=== PATIENT | female | born 1945 | race Caucasian/White ===

== ENCOUNTER 2018-11-14 14:34 | Inpatient (IN) ==
[2018-11-14] MEDS ORDERED: 0.9 % Sodium Chloride 500 ML IVC ONE (14:44)
[2018-11-14] MEDS ORDERED: Aspirin 81 MG TAB.CHEW PO ONE (14:44)
--- NOTE | 2018-11-14 15:24 | Emergency Department Note ---
Disposition Clinical Impression: Thrombocytopenia, Hyponatremia, Weakness Cirrhosis Qualifiers: Hepatic cirrhosis type: alcoholic cirrhosis Ascites presence: with ascites Qualified Code(s): K70.31 - Alcoholic cirrhosis of liver with ascites Disposition: Admitted As Inpatient Condition: Fair Referrals: NONE,PCP [Primary Care Provider] - Forms: ED Satisfaction Letter, Work/School Release Time of Disposition: 17:42 General Adult HPI - General Chief complaint: ED General Medical Stated complaint: Low blood pressure Time Seen by Provider: 11/14/18 14:40 Source: EMS - History of Present Illness Pain Scale: 0 - Related Data Home Medications Medication Instructions Recorded Confirmed Bisoprolol/HCTZ 5/6.25 [Ziac 1 each PO DAILY 02/23/16 07/26/18 5/6.25] Albuterol Sulfate [Proair Hfa] 2 puff IH Q4H PRN 04/17/16 07/26/18 Aspirin 81 mg PO DAILY 04/17/16 07/26/18 Albuterol Neb [Proventil Neb] 2.5 mg IH QID PRN 07/26/18 07/26/18 Naproxen Sodium [Aleve] 220 mg PO DAILY PRN 07/26/18 07/26/18 Previous Rx's Medication Instructions Recorded Oxygen 2 l .ROUTE CONT #1 each 07/28/18 Allergies Allergy/AdvReac Type Severity Reaction Status Date / Time sulfamethoxazole AdvReac See Verified 09/18/16 09:39 [From Bactrim] Comments trimethoprim [From Bactrim] AdvReac See Verified 09/18/16 09:39 Comments Past Medical History - Past Medical History Medical history: Reports: GERD, hypertension Surgical history: Reports: knee replacement, other Psychiatric history: Reports: no psych history - Social History Smoking Status: Current every day smoker Smokeless Tobacco Status: No Alcohol use: Reports: heavy Drug use: Reports: none Physical Exam - General General appearance: alert, in no apparent distress Course Vital Signs Temperature 97.6 F 11/14/18 14:40 Pulse Rate 76 11/14/18 14:40 Respiratory Rate 15 11/14/18 14:40 Blood Pressure 103/60 11/14/18 14:40 O2 Sat by Pulse Oximetry 98 11/14/18 14:40 Temperature 97.6 F 11/14/18 14:40 Pulse Rate 74 11/14/18 16:23 Respiratory Rate 16 11/14/18 16:23 Blood Pressure 105/63 11/14/18 16:23 O2 Sat by Pulse Oximetry 96 11/14/18 16:23 Oxygen Delivery Oxygen Delivery Room Air Medical Decision Making - Lab Data Result diagrams: 11/14/18 15:08 11/14/18 15:08 Lab Results 11/14/18 11/14/18 11/14/18 Range/Units 15:08 15:08 15:08 WBC (4.3-11.1) K/mcL RBC (3.82-4.97) M/mcL Hgb (11.5-15.4) g/dL Hct (35.3-44.9) % MCV (83.0-100.0) fL MCH (28.0-33.3) pg MCHC (31.6-35.5) g/dL RDW (11.5-14.5) % Plt Count (140-400) K/mcL MPV (9.4-12.4) fL Immature Gran % (0-4) % Seg Neutrophils % % Lymphocytes % % Monocytes % % Eosinophils % % Basophils % % Neutrophils # (1.6-8.9) K/mcL Lymphocytes # (0.6-4.6) K/mcL Monocytes # (0.0-1.3) K/mcL Eosinophils # (0.0-0.6) K/mcL Basophils # (0.0-0.2) K/mcL PT 12.3 H (9.4-12.1) Seconds INR 1.1 APTT 32.1 (26.0-36.0) Seconds Sodium (136-145) mEq/L Potassium (3.5-5.1) mEq/L Chloride (98-107) mEq/L Carbon Dioxide (23-29) mEq/L BUN (8-23) mg/dL Creatinine (0.60-1.20) mg/dL Est GFR ( Amer) (> 60) Est GFR (Non-Af Amer) (> 60) BUN/Creatinine Ratio (6-26) Glucose (70-105) mg/dL Calculated Osmolality (280-300) Calcium (8.6-10.3) mg/dL Total Bilirubin 4.3 H (0.3-1.0) mg/dL Direct Bilirubin 2.7 H (0.0-0.2) mg/dL Indirect Bilirubin 1.6 H (0.0-1.2) mg/dL AST 172 H (13-39) Units/L ALT 62 H (7-52) Units/L Alkaline Phosphatase 197 H (34-104) Units/L Troponin I (< 0.04) ng/mL B-Natriuretic Peptide 27 (Less than 100) pg/mL Serum Total Protein 6.6 (6.4-8.9) g/dL Albumin 2.6 L (3.5-5.7) g/dL Globulin 4.0 H (2.4-3.5) g/dL Albumin/Globulin Ratio 0.7 L (1.1-2.2) 11/14/18 11/14/18 Range/Units 15:08 15:08 WBC 4.2 L (4.3-11.1) K/mcL RBC 3.06 L (3.82-4.97) M/mcL Hgb 10.1 L (11.5-15.4) g/dL Hct 30.8 L (35.3-44.9) % MCV 100.7 H (83.0-100.0) fL MCH 33.0 (28.0-33.3) pg MCHC 32.8 (31.6-35.5) g/dL RDW 14.0 (11.5-14.5) % Plt Count 100 L (140-400) K/mcL MPV 11.6 (9.4-12.4) fL Immature Gran % 0.7 (0-4) % Seg Neutrophils % 68.9 % Lymphocytes % 15.1 % Monocytes % 13.9 % Eosinophils % 0.7 % Basophils % 0.7 % Neutrophils # 2.9 (1.6-8.9) K/mcL Lymphocytes # 0.6 (0.6-4.6) K/mcL Monocytes # 0.6 (0.0-1.3) K/mcL Eosinophils # 0.0 (0.0-0.6) K/mcL Basophils # 0.0 (0.0-0.2) K/mcL PT (9.4-12.1) Seconds INR APTT (26.0-36.0) Seconds Sodium 129 L (136-145) mEq/L Potassium 4.1 (3.5-5.1) mEq/L Chloride 90 L (98-107) mEq/L Carbon Dioxide 25 (23-29) mEq/L BUN 14 (8-23) mg/dL Creatinine 0.84 (0.60-1.20) mg/dL Est GFR ( Amer) > 60 (> 60) Est GFR (Non-Af Amer) > 60 (> 60) BUN/Creatinine Ratio 17 (6-26) Glucose 110 H (70-105) mg/dL Calculated Osmolality 269 L (280-300) Calcium 8.5 L (8.6-10.3) mg/dL Total Bilirubin (0.3-1.0) mg/dL Direct Bilirubin (0.0-0.2) mg/dL Indirect Bilirubin (0.0-1.2) mg/dL AST (13-39) Units/L ALT (7-52) Units/L Alkaline Phosphatase (34-104) Units/L Troponin I < 0.03 (< 0.04) ng/mL B-Natriuretic Peptide (Less than 100) pg/mL Serum Total Protein (6.4-8.9) g/dL Albumin (3.5-5.7) g/dL Globulin (2.4-3.5) g/dL Albumin/Globulin Ratio (1.1-2.2) Attestation Statement - Attestation Attestation: I, Bo Francisco DO, examined this patient [id number] and my medical decision-making was reviewed with Jihan Cole DO, Resident Physician. I agree with the documented findings, disposition and treatment plan as described except to the extent set forth below. I personally supervised and was present for the huang/critical portions of the procedures completed by the resident documented below. Please see my progress notes for details. 73-year-old female presents emergency room with complaints of multiple falls as well as lightheadedness and dizziness. Patient said several medications changed over the last several days. She denies any specific chest pain or shortness of breath. She has not had any nausea vomiting or diarrhea. Denies any headache or vision change. The described dizziness is when she gets up and tries to walk around. She is concerned today because she was not feeling well called the squad. As the squad arrived her blood pressure was low in the 80s. They gave her to 50 mL of fluid in the patient's blood pressure was in 106 systolic. Patient does not have any other specific complaints or issues this time. There is a small abrasion the lateral aspect of the right eye. She has no other visible signs of trauma or injury to the head. Her pupils are equal round reactive. Extraocular muscles are intact. Oropharynx is patent mucous membranes are dry. Patient's vital signs reviewed and are stable here. Heart is regular. Lungs are clear. Abdomen is soft. No guarding no rigidity no peritoneal symptoms. Extremities otherwise unremarkable. No signs of ataxia. Sensation is intact. Slight pitting edema in the bilateral lower legs but othe rwise normal neurologic evaluation. Patient denies any vaginal discharge or bleeding at this time. Patient is concerning for medication-induced dizziness and near syncope and falls. Patient is also describing medication induced hypotension. She has been eating and drinking at her baseline. She does have a history of alcohol use taking several shots of liquor a day to go to bed. Patient also smokes. Patient is otherwise clinical stable this point with several medical issues that could be confounding the presentation. Detailed workup with CBC chemistry troponin and BNP urinalysis along with chest x-ray and fluid resuscitation will be started this time. Patient is otherwise clinically stable. See detailed documentation of the physical exam, medical intervention, medical decision-making disposition the resident physician's note. No critical care applied the patient's treatment course at this time. 1715 Patient is found to have a negative workup at this time outside of fluid ac cumulation the abdomen consistent with ascites. He should not will be admitted for symptomatic control management of potential hypotension along with volume depletion. Patient does have anemia that is new in comparison to previous this time. She denies any vaginal discharge or dark-colored stool. Stool sample will be collected as needed for bilirubin is elevated. She does typically of elevated bilirubins but this is worse than previous. Patient has CT imaging does not show any acute pathology in the right upper quadrant but because of liver failure and alcohol abuse the patient will be monitored closely. She does not show any acute signs of pancreatitis or abnormality concerning for a symptomatic jaundice. Patient is requiring further hospital care secondary to lab abnormalities as well as the hypotension. She was discussed with the hospitalist Dr. shaw. They will monitor the patient inpatient setting for continuation of lab evaluation possible right upper quadrant ultrasound and management of the liver related issues that are most likely driving the hypotension and symptoms at home. Patient is otherwise clinically stable here in emergency department. She will be monitored closely until the admission process is completed. EKG and labs are all reviewed by myself in conjunction with resident physician in documented in the charting.
--- NOTE | 2018-11-14 15:38 | Emergency Department Note ---
Disposition Clinical Impression: Thrombocytopenia, Hyponatremia Cirrhosis Qualifiers: Hepatic cirrhosis type: alcoholic cirrhosis Ascites presence: with ascites Qualified Code(s): K70.31 - Alcoholic cirrhosis of liver with ascites Disposition: Admitted As Inpatient Condition: Fair Referrals: NONE,PCP [Primary Care Provider] - Forms: ED Satisfaction Letter, Work/School Release Time of Disposition: 17:29 Dizziness HPI - General Chief Complaint: ED General Medical Stated Complaint: Low blood pressure Time Seen by Provider: 11/14/18 14:40 Source: patient, EMS Mode of arrival: EMS Limitations: no limitations Nursing Notes Reviewed: Yes Vital Signs Reviewed: Yes - History of Present Illness HPI Narrative: 73-year-old female with extensive history of congestive heart failure, COPD, was recently started on Flexeril an increase in her blood pressure medication of unknown name, arrives to the emergency department after frequent falls and dizziness upon standing. Patient's last fall was roughly 2 days ago where she struck her head. No LOC. Patient continues to experience a large amount of dizziness upon standing and shortness of breath. Patient states that she is unable to get around at home secondary to the amount of dizziness she is experiencing. She describes dizziness as a lightheaded sensation and only when she goes to stand up. Patient denies any associative chest pain, abdominal pain, nausea, vomiting, diarrhea. She denies any other complaints at this time. She was noted to have low blood pressure per EMS upon arrival with systolic blood pressure in 80s. Patient's repeat blood pressure upon my evaluation the room is the low 100s. - Related Data Home Medications Medication Instructions Recorded Confirmed Bisoprolol/HCTZ 5/6.25 [Ziac 1 each PO DAILY 02/23/16 07/26/18 5/6.25] Albuterol Sulfate [Proair Hfa] 2 puff IH Q4H PRN 04/17/16 07/26/18 Aspirin 81 mg PO DAILY 04/17/16 07/26/18 Albuterol Neb [Proventil Neb] 2.5 mg IH QID PRN 07/26/18 07/26/18 Naproxen Sodium [Aleve] 220 mg PO DAILY PRN 07/26/18 07/26/18 Previous Rx's Medication Instructions Recorded Oxygen 2 l .ROUTE CONT #1 each 07/28/18 Allergies Allergy/AdvReac Type Severity Reaction Status Date / Time sulfamethoxazole AdvReac See Verified 09/18/16 09:39 [From Bactrim] Comments trimethoprim [From Bactrim] AdvReac See Verified 09/18/16 09:39 Comments All systems ED: reviewed and negative except as stated. Constitutional: Reports: weakness. Denies: fever, chills ENT ED: Denies: dysphagia Cardiovascular: Reports: syncope. Denies: chest pain Respiratory: Reports: dyspnea (chronic) Gastrointestinal: Denies: abdominal pain, nausea, vomiting Genitourinary: Denies: urgency, dysuria Musculoskeletal: Denies: back pain, neck pain Integumentary: Denies: rash Neurological: Reports: weakness. Denies: headache, numbness, paresthesias, confusion Past Medical History - Past Medical History Attestation: Yes The following information was validated with the patient. Source: patient, old records reviewed Medical history: Reports: CHF, COPD, GERD, hypertension Surgical history: Reports: knee replacement, other Psychiatric history: Reports: no psych history - Social History Smoking Status: Current every day smoker Smokeless Tobacco Status: No Alcohol use: Reports: heavy Drug use: Reports: none Physical Exam - General Limitations: no limitations General appearance: alert, in no apparent distress - Head Head exam: normocephalic, normal inspection, other (Small superficial laceration to right brow line) - Eye Eye exam: Present: normal appearance, PERRL, EOMI - ENT ENT exam: normal exam, normal oropharynx, mucous membranes moist - Neck Neck exam: Present: normal inspection, full ROM, trachea midline - Chest Chest inspection: Present: normal inspection, symmetric chest wall rise - Respiratory Respiratory exam: Present: normal lung sounds bilaterally - Cardiovascular Cardiovascular exam: Present: regular rate, normal rhythm, normal heart sounds - Abdominal Exam Abdominal exam: Present: soft, Non-Tender. Absent: tenderness, distention, guarding, rebound, rigidity - Extremities Exam Extremities exam: Present: normal inspection, full ROM, normal capillary refill. Absent: tenderness, pedal edema - Neurological Exam Neurological exam: Present: alert, oriented X3, CN II-XII intact - Expanded Neurological Exam Patient oriented to: Present: person, place, time Speech: Present: fluid speech Cranial nerves: EOM function (II, III, IV, ): Normal, facial sensation (V): Normal, facial palsy (VII): Normal Motor strength - LUE: 4/5 Motor strength - RUE: 4/5 Motor strength - LLE: 4/5 Motor strength - RLE: 4/5 Sensory exam upper extremity: light touch: Normal Sensory exam lower extremity: light touch: Normal Coma Scale Eye Opening: Spontaneous Coma Scale Motor Response: Obeys Commands Coma Scale Verbal Response: Oriented Coma Scale Total: 15 - Skin Skin exam: Present: warm, dry, normal color Course Vital Signs Temperature 97.6 F 11/14/18 14:40 Pulse Rate 76 11/14/18 14:40 Respiratory Rate 15 11/14/18 14:40 Blood Pressure 103/60 11/14/18 14:40 O2 Sat by Pulse Oximetry 98 11/14/18 14:40 Temperature 97.6 F 11/14/18 14:40 Pulse Rate 74 11/14/18 16:23 Respiratory Rate 16 11/14/18 16:23 Blood Pressure 105/63 11/14/18 16:23 O2 Sat by Pulse Oximetry 96 11/14/18 16:23 Oxygen Delivery Oxygen Delivery Room Air Dizziness - MDM Narrative Medical decision making narrative: Patient's workup in the emergency department demonstrates sinus concerning for hyponatremia. The patient is a thrombocytopenia and what appears to be liver c irrhosis. The patient is a large amount of ascites in her abdomen and pelvis. Patient is a chronic alcoholic which likely explains the source of all of her symptoms. The patient has remained stable in the emergency department. We will admit the patient to the hospital at this time for further workup and care. Patient made aware and agrees to plan. Accepted by Dr. Farfan. - Lab Data Lab results reviewed: Yes I reviewed the patient's lab results. Result diagrams: 11/14/18 15:08 11/14/18 15:08 Lab Results 11/14/18 11/14/18 11/14/18 Range/Units 15:08 15:08 15:08 WBC (4.3-11.1) K/mcL RBC (3.82-4.97) M/mcL Hgb (11.5-15.4) g/dL Hct (35.3-44.9) % MCV (83.0-100.0) fL MCH (28.0-33.3) pg MCHC (31.6-35.5) g/dL RDW (11.5-14.5) % Plt Count (140-400) K/mcL MPV (9.4-12.4) fL Immature Gran % (0-4) % Seg Neutrophils % % Lymphocytes % % Monocytes % % Eosinophils % % Basophils % % Neutrophils # (1.6-8.9) K/mcL Lymphocytes # (0.6-4.6) K/mcL Monocytes # (0.0-1.3) K/mcL Eosinophils # (0.0-0.6) K/mcL Basophils # (0.0-0.2) K/mcL PT 12.3 H (9.4-12.1) Seconds INR 1.1 APTT 32.1 (26.0-36.0) Seconds Sodium (136-145) mEq/L Potassium (3.5-5.1) mEq/L Chloride (98-107) mEq/L Carbon Dioxide (23-29) mEq/L BUN (8-23) mg/dL Creatinine (0.60-1.20) mg/dL Est GFR ( Amer) (> 60) Est GFR (Non-Af Amer) (> 60) BUN/Creatinine Ratio (6-26) Glucose (70-105) mg/dL Calculated Osmolality (280-300) Calcium (8.6-10.3) mg/dL Total Bilirubin 4.3 H (0.3-1.0) mg/dL Direct Bilirubin 2.7 H (0.0-0.2) mg/dL Indirect Bilirubin 1.6 H (0.0-1.2) mg/dL AST 172 H (13-39) Units/L ALT 62 H (7-52) Units/L Alkaline Phosphatase 197 H (34-104) Units/L Troponin I (< 0.04) ng/mL B-Natriuretic Peptide 27 (Less than 100) pg/mL Serum Total Protein 6.6 (6.4-8.9) g/dL Albumin 2.6 L (3.5-5.7) g/dL Globulin 4.0 H (2.4-3.5) g/dL Albumin/Globulin Ratio 0.7 L (1.1-2.2) 11/14/18 11/14/18 Range/Units 15:08 15:08 WBC 4.2 L (4.3-11.1) K/mcL RBC 3.06 L (3.82-4.97) M/mcL Hgb 10.1 L (11.5-15.4) g/dL Hct 30.8 L (35.3-44.9) % MCV 100.7 H (83.0-100.0) fL MCH 33.0 (28.0-33.3) pg MCHC 32.8 (31.6-35.5) g/dL RDW 14.0 (11.5-14.5) % Plt Count 100 L (140-400) K/mcL MPV 11.6 (9.4-12.4) fL Immature Gran % 0.7 (0-4) % Seg Neutrophils % 68.9 % Lymphocytes % 15.1 % Monocytes % 13.9 % Eosinophils % 0.7 % Basophils % 0.7 % Neutrophils # 2.9 (1.6-8.9) K/mcL Lymphocytes # 0.6 (0.6-4.6) K/mcL Monocytes # 0.6 (0.0-1.3) K/mcL Eosinophils # 0.0 (0.0-0.6) K/mcL Basophils # 0.0 (0.0-0.2) K/mcL PT (9.4-12.1) Seconds INR APTT (26.0-36.0) Seconds Sodium 129 L (136-145) mEq/L Potassium 4.1 (3.5-5.1) mEq/L Chloride 90 L (98-107) mEq/L Carbon Dioxide 25 (23-29) mEq/L BUN 14 (8-23) mg/dL Creatinine 0.84 (0.60-1.20) mg/dL Est GFR ( Amer) > 60 (> 60) Est GFR (Non-Af Amer) > 60 (> 60) BUN/Creatinine Ratio 17 (6-26) Glucose 110 H (70-105) mg/dL Calculated Osmolality 269 L (280-300) Calcium 8.5 L (8.6-10.3) mg/dL Total Bilirubin (0.3-1.0) mg/dL Direct Bilirubin (0.0-0.2) mg/dL Indirect Bilirubin (0.0-1.2) mg/dL AST (13-39) Units/L ALT (7-52) Units/L Alkaline Phosphatase (34-104) Units/L Troponin I < 0.03 (< 0.04) ng/mL B-Natriuretic Peptide (Less than 100) pg/mL Serum Total Protein (6.4-8.9) g/dL Albumin (3.5-5.7) g/dL Globulin (2.4-3.5) g/dL Albumin/Globulin Ratio (1.1-2.2) - Radiology Data Radiology results reviewed: Yes I reviewed the patient's radiology results. Chest X-Ray 11/14/18 14:44 IMPRESSION: Bibasilar atelectasis. D/ / Chayito Gold MD / Chayito Gold MD Interpreting Provider: Chayito Gold MD Head CT 11/14/18 14:44 IMPRESSION: No acute intracranial abnormality. Chronic small vessel ischemic disease. D/ / 11/14/2018 16:30:31 Abigail Luna MD / Marlena lockhart Interpreting Provider: Abigail Luna MD Abdomen/Pelvis CT 11/14/18 16:07 IMPRESSION: Moderate-large amount of free fluid within the abdomen and pelvis. No bowel obstruction. Gallbladder sludge. No discrete gallstones. Hepatic cirrhosis with severe hepatic steatosis. Persistent right middle lobe nodular opacity. Recommend continued follow-up. Consider 6 months. D/ : / 11/14/2018 16:38:45 [facility] A Walton [facility] Interpreting Provider: Miguel A Walton MD - EKG Data EKG attestation: Yes I reviewed and interpreted this EKG. EKG results narrative: Heart rate 74 beats for minute. Normal sinus rhythm. No ST elevation or ST depression noted. No acute changes noted. Large amount of artifact. No other acute changes noted. Attestation Statement - Attestation Attestation: I, Bo Francisco DO, examined this patient [id number] and my medical decision-making was reviewed with Jihan Cole DO, Resident Physician. I agree with the documented findings, disposition and treatment plan as described except to the extent set forth below. I personally supervised and was present for the huang/critical portions of the procedures completed by the resident documented below. Please see my progress notes for details.
[2018-11-14 15:43] LABS: Basophils % 0.7 %; Eosinophils % 0.7 %; Hematocrit 30.8 % (35.3-44.9); Immature Granulocytes % 0.7 % (0-4); Lymphocytes # 0.6 K/mcL (0.6-4.6); Lymphocytes % 15.1 %; Mean Corpuscular HGB Conc 32.8 g/dL (31.6-35.5); Mean Corpuscular Volume 100.7 fL (83.0-100.0); Mean Platelet Volume 11.6 fL (9.4-12.4); Monocytes # 0.6 K/mcL (0.0-1.3); Monocytes % 13.9 %; Neutrophils # 2.9 K/mcL (1.6-8.9); Platelet Count 100 K/mcL (140-400); Red Blood Count 3.06 M/mcL (3.82-4.97); Segmented Neutrophils % 68.9 %
[2018-11-14 15:45] LABS: Hemoglobin 10.1 g/dL (11.5-15.4)
[2018-11-14 15:51] LABS: INR 1.1; Prothrombin Time 12.3 Seconds (9.4-12.1)
[2018-11-14 15:53] LABS: Activated Partial Thrombo Time 32.1 Seconds (26.0-36.0)
[2018-11-14 15:57] LABS: Albumin 2.6 g/dL (3.5-5.7); Albumin/Globulin Ratio 0.7 (1.1-2.2); Bilirubin,Direct 2.7 mg/dL (0.0-0.2); Bilirubin,Indirect 1.6 mg/dL (0.0-1.2); Bilirubin,Total 4.3 mg/dL (0.3-1.0); Total Protein 6.6 g/dL (6.4-8.9)
[2018-11-14] MEDS ORDERED: 0.9 % Sodium Chloride 1,000 ML ONE (16:47)
[2018-11-14 16:49] LABS: Troponin I < 0.03 ng/mL (< 0.04)
[2018-11-14 17:15] LABS: BUN/Creatinine Ratio 17 (6-26); Blood Urea Nitrogen 14 mg/dL (8-23); Calcium 8.5 mg/dL (8.6-10.3); Carbon Dioxide 25 mEq/L (23-29); Chloride 90 mEq/L (98-107); Glucose 110 mg/dL (70-105); Osmolality,Calculated 269 (280-300); Potassium 4.1 mEq/L (3.5-5.1); Sodium 129 mEq/L (136-145); eGFR For Non-African Americans > 60 (> 60)
[2018-11-14] MEDS ORDERED: Naloxone 0.4 MG/ML INJ IVP PRN (17:54)
--- NOTE | 2018-11-14 18:03 | Internal Med History&Physical ---
Date of Encounter: 11/14/18 Time of Encounter: 18:01 Internal Medicine - H&P: HPI Chief complaint: Frequent falls Admitted From: Emergency Dept Plans for Post Hospital Care: Home History of present illness: Ms. Fatimah Baron is a 73 year old female with history of liver cirrhosis, hypertension presents with hypotension and frequent falls. Patient states that over the last several days she has had episodes where she has fallen. She cannot describe the events that caused her fall but is adamant that she did not pass out or lose consciousness. She denies any dizziness. She does state that she feels like her blood pressure is low. She also feels like she has been bumping into things. She states her PCPs been changing on her medications but she cannot exactly describe what and how much she is taking. She states she has never had anything like this before. She states nothing makes her falling episodes better or worse. She reports chronic low back pain that is unchanged. She denies fever, chills, chest pain, shortness of breath. She feels like her abdomen is more swollen and full of fluid but denies abdominal pain, nausea, vomiting, diarrhea. Discussed with patient wishes to be full code. Past Med Surg Social Fam HX - Past Medical History Medical history: CHF, COPD, GERD, hypertension Additional medical history: declined smoking cessation. htn. nicotine abuse. battery end of life of spinal cord stimulator. post laminectomy syndrome Psychiatric history: no psych history - Past Surgical History Surgical History: knee replacement, other Additional surgical history: bladdder repair. amber knee replacement. gastric bypass. exlap,. back surgery - Social History Smoking Status: Current every day smoker Smokeless Tobacco Status: No Alcohol use: heavy (2-3 shots of whiskey nightly) Drug use: none - Family History Mother Living Status: Hx Family Cardiac Disorders: Yes Hx Family Respiratory Disorders: No Hx Family Cancer: Yes (brain tumor) Hx Family GI Disorders: No Hx Family Endocrine Disorder: Yes Hx Family Neuromuscular Disorders: No Hx Family Neurologic Disorders: No Hx Family HEENT Disorders: No Hx Family Autoimmune Disorders: No Father Living Status: Hx Family Cardiac Disorders: No Hx Family Respiratory Disorders: Yes Hx Family Cancer: No Hx Family GI Disorders: No Hx Family Endocrine Disorder: No Hx Family Neuromuscular Disorders: No Hx Family Neurologic Disorders: No Hx Family HEENT Disorders: No Hx Family Autoimmune Disorders: No Sister Living Status: Hx Family Cardiac Disorders: No Hx Family Respiratory Disorders: No Hx Family Cancer: Yes (brain tumor) Hx Family GI Disorders: No Hx Family Endocrine Disorder: Yes Hx Family Neuromuscular Disorders: No Hx Family Neurologic Disorders: No Hx Family HEENT Disorders: No Hx Family Autoimmune Disorders: No Brother Living Status: Still Living Hx Family Cardiac Disorders: Yes Hx Family Respiratory Disorders: Yes Hx Family Cancer: Yes Hx Family GI Disorders: No Hx Family Endocrine Disorder: Yes Hx Family Neuromuscular Disorders: No Hx Family Neurologic Disorders: No Hx Family HEENT Disorders: No Hx Family Autoimmune Disorders: No Son Hx Family Neuromuscular Disorders: No Hx Family Neurologic Disorders: Yes - Additional Family History Additional family history: Patient states every single one of her family members has fatty liver Internal Medicine - H&P: Meds Bisoprolol/HCTZ 5/6.25 [Ziac 5/6.25] 1 each PO DAILY 02/23/16 [History] Albuterol Sulfate [Proair Hfa] 2 puff IH Q4H PRN 04/17/16 [History] Aspirin 81 mg PO DAILY 04/17/16 [History] Albuterol Neb [Proventil Neb] 2.5 mg IH QID PRN 07/26/18 [History] Naproxen Sodium [Aleve] 220 mg PO DAILY PRN 07/26/18 [History] Oxygen 2 l .ROUTE CONT #1 each 07/28/18 [Rx] Allergy/AdvReac Type Severity Reaction Status Date / Time sulfamethoxazole AdvReac See Verified 09/18/16 09:39 [From Bactrim] Comments trimethoprim [From Bactrim] AdvReac See Verified 09/18/16 09:39 Comments All Systems PM: A 10-system review of systems was performed and is negative for pertinent findings except as documented above in the HPI. Review of systems: 10 point review of systems was obtained and negative other than stated: - Constitutional Constitutional: no chills, no fever(s) - Cardiovascular Cardiovascular ROS IM: no chest pain, no dyspnea - Gastrointestinal Gastrointestinal: no abdominal pain, no diarrhea, no nausea, no vomiting - Musculoskeletal Musculoskeletal ROS IM: back pain (chronic) - Constitutional Vitals: Temp Pulse Resp BP Pulse Ox 97.6 F 74 16 105/63 96 11/14/18 14:40 11/14/18 16:23 11/14/18 16:23 11/14/18 16:23 11/14/18 16:23 General appearance: Present: A&O X 3, pleasant, no acute distress Exam: . - Head Head exam: Present: normal inspection, normocephalic Additional comments: Old healing ecchymosis around right eye with abrasion above her right eye - Eye Eye exam: Present: EOMI, PERRL - ENT ENT exam: Present: mucous membranes moist - Neck Neck exam general surgery: Present: full ROM. Absent: tenderness, nuchal rigidity - Respiratory Respiratory exam: Present: CTAB. Absent: rales, rhonchi, wheezes - Cardiovascular Cardiovascular exam: Present: RRR. Absent: gallop, rubs, systolic murmur - GI/Abdominal GI/Abdominal exam: Present: distended, normal bowel sounds, soft. Absent: tenderness Additional comments: Positive shifting dullness and fluid wave. - Extremities Exam Extremities exam: Present: pedal edema (1+ lower extremity pitting edema.), warm. Absent: calf tenderness, tenderness - Neurological Exam Neurological exam: Present: alert, CN II-XII intact, oriented X3, no focal deficits, strengths equal and symetr throughout. Absent: facial droop, speech deficit - Psychiatric Psychiatric exam: Present: normal affect, normal mood - Skin Skin exam: Present: dry, warm Internal Med - H&P Results - Labs CBC & Chem 7: 11/14/18 15:08 11/14/18 15:08 Labs: Short CBC 11/14/18 Range/Units 15:08 WBC 4.2 L (4.3-11.1) K/mcL Hgb 10.1 L (11.5-15.4) g/dL Hct 30.8 L (35.3-44.9) % Plt Count 100 L (140-400) K/mcL Neutrophils # 2.9 (1.6-8.9) K/mcL BMP 11/14/18 15:08 Sodium 129 L Potassium 4.1 Chloride 90 L Carbon Dioxide 25 BUN 14 Creatinine 0.84 Glucose 110 H Calcium 8.5 L Cardiac Enzymes 11/14/18 Range/Units 15:08 Troponin I < 0.03 (< 0.04) ng/mL Liver Function 11/14/18 Range/Units 15:08 Total Bilirubin 4.3 H (0.3-1.0) mg/dL Direct Bilirubin 2.7 H (0.0-0.2) mg/dL AST 172 H (13-39) Units/L ALT 62 H (7-52) Units/L Alkaline Phosphatase 197 H (34-104) Units/L Albumin 2.6 L (3.5-5.7) g/dL - Impressions ITS Impressions Chest X-Ray 11/14/18 14:44 IMPRESSION: Bibasilar atelectasis. D/ / Chayito Gold MD / Chayito Gold MD Interpreting Provider: Chayito Gold MD Head CT 11/14/18 14:44 IMPRESSION: No acute intracranial abnormality. Chronic small vessel ischemic disease. D/ / 11/14/2018 16:30:31 Abigail Luna MD / Marlena Doss Interpreting Provider: Abigail Luna MD Abdomen/Pelvis CT 11/14/18 16:07 IMPRESSION: Moderate-large amount of free fluid within the abdomen and pelvis. No bowel obstruction. Gallbladder sludge. No discrete gallstones. Hepatic cirrhosis with severe hepatic steatosis. Persistent right middle lobe nodular opacity. Recommend continued follow-up. Consider 6 months. D/ /14/2018 16:38:45 Miguel A Walton MD / kevon Interpreting Provider: Miguel A Walton MD - Assessment and Plan (1) Hypotension Current Visit: Yes Status: Acute Assessment and plan: Patient presents with relative hypotension with falls that I feel like her rela candida to her hypertension. She is able to maintain her mean arterial pressure greater than 65 so there is no indication for vasopressors. Normal mentation with no evidence of end organ damage. Patient received 1 L of normal saline in the emergency department. Considering her ascites will hold off further crystalloid fluid and give albumin 25 g. Hold home blood pressure medications including diuretics at this time. Continue to closely monitor blood pressure. Telemetry reviewed, no indication for arrhythmia but continue cardiac telemetry. Qualifiers: Hypotension type: unspecified hypotension type Qualified Code(s): I95.9 - Hypotension, unspecified (2) Cirrhosis of liver with ascites Current Visit: No Status: Acute Assessment and plan: Patient has radiographic evidence of cirrhosis with abdominal ascites on CT scan which I personally reviewed. Cirrhosis likely secondary to chronic alcohol use. Reviewed previous gastroenterology notes and workup which revealed no other causes of liver cirrhosis including a negative viral hepatitis workup. Meld is 20, child Rodriguez class C indicative of advanced disease. Hold diuretics at this time due to hypotension as above. No encephalopathy so no indication for lactulose therapy currently. Albumin as above. Plan for paracentesis tomorrow. No abdominal pain, fever, leukocytosis so very low suspicion for SBP. Qualifiers: Hepatic cirrhosis type: alcoholic cirrhosis Qualified Code(s): K70.31 - Alcoholic cirrhosis of liver with ascites (3) Hyponatremia Current Visit: Yes Status: Acute Assessment and plan: Likely secondary to cirrhosis with volume overload. Mild at 129, asymptomatic. She received 1 L of fluids in the emergency department, we will avoid further normal saline. Recheck sodium in the morning. (4) Weakness Current Visit: Yes Status: Acute Assessment and plan: Patient reports weakness and frequent falls, possibly due to hypotension. Holding blood pressure medications and giving albumin as discussed above. We w ill consult PT/OT. (5) HTN (hypertension) Current Visit: No Status: Chronic Assessment and plan: Patient is hypotensive as discussed above. Hold pressure medications including diuretics at this time. Patient will likely need to discontinue blood pressure medications other than diuretics at discharge. Qualifiers: Hypertension type: essential hypertension Qualified Code(s): I10 - Essential (primary) hypertension (6) DVT prophylaxis Current Visit: No Status: Acute Assessment and plan: Heparin 500 subcutaneous twice a day - Time Spent With Patient Total time spent is greater than 50% in coordination of care (as documented) at patient's floor/unit and/or counseling patient:
[2018-11-14 18:30] LABS: Bilirubin,Urine Large (Negative); Blood,Urine Negative (Negative); Clarity,Urine Cloudy (Clear); Glucose,Urine (UA) Normal (Normal); Ketones,Urine 15 mg/dL (Negative); Leukocyte Esterase,Urine Small (Negative); Nitrite,Urine Positive (Negative); Protein,Urine Trace mg/dL (Neg-Trace); Urobilinogen,Urine >=8.0 mg/dL (Normal)
[2018-11-14 18:32] LABS: Bacteria,Urine None Seen per hpf (None-Few); RBC,Urine 50-100 per hpf (0-3); Squamous Epithelial Cell,Urine Many per lpf (None-Few)
[2018-11-14 18:47] LABS: Color,Urine Dark Yellow (Yellow)
[2018-11-14 19:02] LABS: Hyaline Casts,Urine Many per lpf (None-Few)
[2018-11-14] MEDS ORDERED: cefTRIAXone 1,000 MG in Water for inj. (sterile) 20 ML 10 ML IVP ONE (19:07)
[2018-11-14] MEDS ORDERED: Albuterol 2.5 MG/3 ML NEBULIZER IH PRN (23:34)
[2018-11-14] MEDS ORDERED: Ibuprofen 400 MG TABLET PO ONE (23:35)
[2018-11-15] MEDS: *HR* Heparin 5,000 UNIT/ML VIAL SQ SCH ×2 (05:28→19:00)
[2018-11-15] MEDS ORDERED: *HR* LORazepam 2 MG/ML VIAL IVP PRN ×3 (07:02)
[2018-11-15 08:36] LABS: Basophils % 0.7 %; Eosinophils # 0.1 K/mcL (0.0-0.6); Eosinophils % 2.9 %; Hemoglobin 10.1 g/dL (11.5-15.4); Immature Granulocytes % 0.5 % (0-4); Lymphocytes # 0.9 K/mcL (0.6-4.6); Lymphocytes % 20.3 %; Mean Corpuscular HGB Conc 33.7 g/dL (31.6-35.5); Mean Corpuscular Hemoglobin 33.4 pg (28.0-33.3); Mean Corpuscular Volume 99.3 fL (83.0-100.0); Mean Platelet Volume 11.7 fL (9.4-12.4); Monocytes # 0.6 K/mcL (0.0-1.3); Monocytes % 13.2 %; Neutrophils # 2.6 K/mcL (1.6-8.9); Platelet Count 103 K/mcL (140-400); Red Blood Count 3.02 M/mcL (3.82-4.97); Red Cell Distribution Width 14.1 % (11.5-14.5); Segmented Neutrophils % 62.4 %
[2018-11-15 08:45] LABS: INR 1.1; Prothrombin Time 12.7 Seconds (9.4-12.1)
[2018-11-15 08:47] LABS: Alanine Aminotransferase 54 Units/L (7-52); Albumin 2.8 g/dL (3.5-5.7); Albumin/Globulin Ratio 0.8 (1.1-2.2); Alkaline Phosphatase 188 Units/L (34-104); Aspartate Amino Transferase 148 Units/L (13-39); Bilirubin,Direct 3.2 mg/dL (0.0-0.2); Bilirubin,Indirect 1.8 mg/dL (0.0-1.2); Blood Urea Nitrogen 18 mg/dL (8-23); Calcium 8.7 mg/dL (8.6-10.3); Carbon Dioxide 31 mEq/L (23-29); Chloride 89 mEq/L (98-107); Globulin 3.6 g/dL (2.4-3.5); Glucose 84 mg/dL (70-105); Magnesium 1.6 mg/dL (1.6-2.6); Osmolality,Calculated 265 (280-300); Potassium 3.7 mEq/L (3.5-5.1); Sodium 127 mEq/L (136-145); Total Protein 6.4 g/dL (6.4-8.9)
[2018-11-15 09:24] LABS: BUN/Creatinine Ratio 19 (6-26); eGFR For Non-African Americans 59 (> 60)
--- NOTE | 2018-11-15 10:01 | Electrocardiograph Report ---
[place] [id number] Test Date: 2018-11-14 Pat Name: Jannette Baron Department: EXAM6 Room: [facility] Gender: F Powderman: : 1945 Requested By: Bo Francisco Order Number: [id number] Reading MD: Richi Dickerson Measurements Intervals [place] Rate: 74 P: 19 RI: 146 QRS: 13 QRSD: 104 T: 37 QT: 444 QTc: 493 Interpretive Statements Sinus rhythm Baseline artifact Electronically Signed On 11-15-2018 10:00:33 EDT by Richi Dickerson
--- NOTE | 2018-11-15 11:15 | Procedure Note ---
Date of procedure: 11/15/18 Pre-op diagnosis: Ascites Post-op diagnosis: same Procedure: Abdominal paracentesis: Written consent was obtained from patient. The abdomen was surveyed using ultrasound and on the right side there is noted to be large pocket of fluid. The patient was clinically drip in usual sterile fashion. 10 mL of 1% lidocaine was used to anesthetize the skin and soft tissues. A emmett in the skin was made and a paracentesis catheter was advanced into the peritoneal cavity. Straw- colored fluid was encountered however when attempting to advance the paracentesis catheter over the needle there is difficulty with advancing the catheter and the catheter became kinked. At this time I removed the catheter needle and obtained a second kit and reattempted the paracentesis at the same site. Again straw-colored ascitic fluid was obtained however there was difficu lty with advancing the catheter. At this point I the procedure and have consulted IR for abdominal paracentesis. The patient tolerated the procedure well, there are no immediate complications. Patient was reevaluated approximately one hour after the procedure she remained stable with no abdominal pain or adverse effects. Anesthesia: local (10cc 1% lidocaine) Surgeon: Sergio Young Was there an buyer assistant present: No Estimated blood loss (cc): 0 Specimen: none Pathology: none sent Condition: stable Disposition: floor
--- NOTE | 2018-11-15 11:18 | Internal Med Progress Note ---
Hospitalist Progress Note - Encounter Date of Encounter: 11/15/18 Time of Encounter: 11:16 - Subjective Interval History: Patient seen and examined at bedside. Patient states that she feels pretty good today. She states she has been up moving around the room without any weakness or falls. She denies any abdominal pain, nausea, vomiting. She does report decreased urine output. - Exam Vitals: Temp Pulse Resp BP Pulse Ox 97.9 F 94 16 107/66 97 11/15/18 08:00 11/15/18 08:00 11/15/18 08:00 11/15/18 08:00 11/15/18 08:00 Exam: Gen.: Oriented 3, no acute distress Heart: Regular rate and rhythm, no murmurs, rubs, gallops Lungs: Clear to auscultation bilaterally, no rales, rhonchi, wheezes Abdomen: Soft, nondistended, nontender. Normoactive bowel sounds. Ascites present. - Assessment and Plan (1) Hypotension Current Visit: Yes Status: Resolved Assessment and Plan: Resolved at this time after giving albumin last night. We will restart her diu retic regimen with Lasix 20 mg by mouth and prolactin 12.5 mg by mouth. (2) Cirrhosis of liver with ascites Current Visit: No Status: Acute Assessment and Plan: Patient remains of ascites present. Paracentesis attempted but unsuccessful, please see procedure note for details. Consult IR for paracentesis. (3) Hyponatremia Current Visit: Yes Status: Acute Assessment and Plan: Slightly worse today but stable. Asymptomatic. (4) Weakness Current Visit: Yes Status: Acute Assessment and Plan: Patient reports subjective improvement in her weakness. Awaiting PT/OT evaluation. (5) HTN (hypertension) Current Visit: No Status: Chronic Assessment and Plan: Blood pressure improved today. After her medications were updated it appears that she is only on diuretics at home. We will restart as above. (6) DVT prophylaxis Current Visit: No Status: Acute Assessment and Plan: Heparin 500 subcutaneous twice a day - Time Spent with Patient Total time spent is greater than 50% in coordination of care (as documented) at patient's floor/unit and/or counseling patient: Internal Medicine: Result - Labs CBC & Chem 7: 11/15/18 08:14 11/15/18 08:14 Labs: Short CBC 11/14/18 11/15/18 Range/Units 15:08 08:14 WBC 4.2 L 4.2 L (4.3-11.1) K/mcL Hgb 10.1 L 10.1 L (11.5-15.4) g/dL Hct 30.8 L 30.0 L (35.3-44.9) % Plt Count 100 L 103 L (140-400) K/mcL Neutrophils # 2.9 2.6 (1.6-8.9) K/mcL BMP 11/14/18 11/15/18 15:08 08:14 Sodium 129 L 127 L Potassium 4.1 3.7 Chloride 90 L 89 L Carbon Dioxide 25 31 H BUN 14 18 Creatinine 0.84 0.94 Glucose 110 H 84 Calcium 8.5 L 8.7 Cardiac Enzymes 11/14/18 Range/Units 15:08 Troponin I < 0.03 (< 0.04) ng/mL Liver Function 11/14/18 11/15/18 Range/Units 15:08 08:14 Total Bilirubin 4.3 H 5.0 H (0.3-1.0) mg/dL Direct Bilirubin 2.7 H 3.2 H (0.0-0.2) mg/dL AST 172 H 148 H (13-39) Units/L ALT 62 H 54 H (7-52) Units/L Alkaline Phosphatase 197 H 188 H (34-104) Units/L Albumin 2.6 L 2.8 L (3.5-5.7) g/dL Urine 11/14/18 Range/Units 18:19 Urine Color Dark Yellow (Yellow) Urine Clarity Cloudy A (Clear) Urine pH 5.0 (5.0-8.0) pH Units Ur Specific [place] 1.020 (1.010-1.025) Urine Protein Trace (Neg-Trace) mg/dL Urine Glucose (UA) Normal (Normal) mg/dL - ABG Interpretation ABG results: PT/INR, D-dimer PT 12.7 Seconds (9.4-12.1) H 11/15/18 08:14 - Impressions Impressions Chest X-Ray 11/14/18 14:44 IMPRESSION: Bibasilar atelectasis. D/ / Chayito Gold MD / Chayito Gold MD Interpreting Provider: Chayito Gold MD Head CT 11/14/18 14:44 IMPRESSION: No acute intracranial abnormality. Chronic small vessel ischemic disease. D/ / 11/14/2018 16:30:31 Abigail Luna MD / Marlena Doss Interpreting Provider: Abigail Luna MD Abdomen/Pelvis CT 11/14/18 16:07 IMPRESSION: Moderate-large amount of free fluid within the abdomen and pelvis. No bowel obstruction. Gallbladder sludge. No discrete gallstones. Hepatic cirrhosis with severe hepatic steatosis. Persistent right middle lobe nodular opacity. Recommend continued follow-up. Consider 6 months. D/ / 11/14/2018 16:38:45 Miguel A Walton MD / kevon Interpreting Provider: Miguel A Walton MD Consult Discharge Plan - Plan Referrals: Althea Love DO [Resident] - (1) Hypotension Qualifiers: Hypotension type: unspecified hypotension type Qualified Code(s): I95.9 - Hypotension, unspecified (2) Cirrhosis of liver with ascites Qualifiers: Hepatic cirrhosis type: alcoholic cirrhosis Qualified Code(s): K70.31 - Alcoholic cirrhosis of liver with ascites (5) HTN (hypertension) Qualifiers: Hypertension type: essential hypertension Qualified Code(s): I10 - Essential (primary) hypertension
[2018-11-15] MEDS: Furosemide 20 MG TABLET PO SCH (11:31)
[2018-11-15] MEDS: Spironolactone 25 MG TABLET PO SCH (11:31)
[2018-11-15 13:56] LABS: RBC,Peritoneal Fluid < 0.002 M/mcL
[2018-11-15 13:59] LABS: Amylase,Peritoneal Fluid < 10 Units/L (No Ref Range); Glucose,Peritoneal Fluid 93 mg/dL (No Ref Range); LDH,Peritoneal Fluid 74 Units/L (No Ref Range); Total Protein,Peritoneal Fluid < 3.0 g/dL
--- NOTE | 2018-11-15 15:02 | IR Procedure Note ---
Date of procedure: 11/15/18 Consent Obtained: Written consent Timeout: Correct patient and procedure verified, Correct site verified, Time out performed, Skin prep completed Local anesthetic: Lidocaine 1% Indications: Ascites Procedure Performed: Paracentesis Was there an minister assistant present: No Site/Technique: LLQ access. 8fr cath used. Results/Findings: Tolerated well. No immediate complications. Estimated blood loss (cc): 1 Complications: None; Tolerated procedure well Post Procedure Treatment Plan: Monitoring in pts room Specimen: to lab
[2018-11-15 15:32] LABS: Appearance of Peritoneal Fl CLEAR (Clear); Volume of Peritoneal Fluid 5.5 mL
[2018-11-16] MEDS ORDERED: Ibuprofen 400 MG TABLET PO ONE ×2 (00:21→21:44)
[2018-11-16 02:44] LABS: Basophils % 0.7 %; Eosinophils # 0.1 K/mcL (0.0-0.6); Eosinophils % 1.7 %; Hematocrit 31.8 % (35.3-44.9); Hemoglobin 10.8 g/dL (11.5-15.4); Immature Granulocytes % 0.7 % (0-4); Lymphocytes # 0.8 K/mcL (0.6-4.6); Lymphocytes % 19.4 %; Mean Corpuscular Hemoglobin 33.4 pg (28.0-33.3); Mean Corpuscular Volume 98.5 fL (83.0-100.0); Mean Platelet Volume 12.7 fL (9.4-12.4); Monocytes # 0.5 K/mcL (0.0-1.3); Monocytes % 13.3 %; Neutrophils # 2.6 K/mcL (1.6-8.9); Platelet Count 117 K/mcL (140-400); Red Blood Count 3.23 M/mcL (3.82-4.97); Segmented Neutrophils % 64.2 %
[2018-11-16 03:02] LABS: Alanine Aminotransferase 59 Units/L (7-52); Albumin 2.7 g/dL (3.5-5.7); Albumin/Globulin Ratio 0.7 (1.1-2.2); Alkaline Phosphatase 197 Units/L (34-104); Aspartate Amino Transferase 176 Units/L (13-39); BUN/Creatinine Ratio 22 (6-26); Bilirubin,Direct 3.1 mg/dL (0.0-0.2); Bilirubin,Indirect 1.6 mg/dL (0.0-1.2); Bilirubin,Total 4.7 mg/dL (0.3-1.0); Blood Urea Nitrogen 16 mg/dL (8-23); Calcium 8.4 mg/dL (8.6-10.3); Carbon Dioxide 30 mEq/L (23-29); Chloride 91 mEq/L (98-107); Glucose 111 mg/dL (70-105); Magnesium 1.4 mg/dL (1.6-2.6); Osmolality,Calculated 270 (280-300); Potassium 3.6 mEq/L (3.5-5.1); Sodium 129 mEq/L (136-145); Total Protein 6.7 g/dL (6.4-8.9); eGFR For Non-African Americans > 60 (> 60)
[2018-11-16] MEDS: *HR* Heparin 5,000 UNIT/ML VIAL SQ SCH ×2 (06:11→17:19)
[2018-11-16] MEDS: Spironolactone 25 MG TABLET PO SCH (07:47)
[2018-11-16] MEDS: Folic Acid 1 MG TABLET PO SCH (07:48)
[2018-11-16] MEDS: Furosemide 20 MG TABLET PO SCH (07:48)
--- NOTE | 2018-11-16 14:55 | Internal Med Progress Note ---
Hospitalist Progress Note - Encounter Date of Encounter: 11/16/18 Time of Encounter: 16:43 - Subjective Interval History: dizziness decreased occasional dyspnea no chest pain wearing O2 at home for 2 months - Exam Vitals: Temp Pulse Resp BP Pulse Ox 98.1 F 98 18 107/62 92 11/16/18 14:40 11/16/18 14:40 11/16/18 14:40 11/16/18 14:40 11/16/18 14:40 Exam: Gen.: Oriented 3, no acute distress mild icterus Heart: Regular rate and rhythm, no murmurs, rubs, gallops Lungs: Clear to auscultation bilaterally, no rales, rhonchi, wheezes Abdomen: Soft, nondistended, nontender. Normoactive bowel sounds. no nakle edema alert, oriented, no dysarthria or focal mtor deficits - Assessment and Plan (1) DVT prophylaxis Current Visit: No Status: Acute (2) Cirrhosis Current Visit: Yes Status: Chronic (3) Hyponatremia Current Visit: Yes Status: Acute (4) Hypotension Current Visit: Yes Status: Resolved - Summary of Assessment and Plan Summary of Assessment and Plan: Per H&P: """Ms. Fatimah Baron is a 73 year old female with history of liver cirrhosis, hypertension presents with hypotension and frequent falls. Patient states that over the last several days she has had episodes where she has fallen. She cannot describe the events that caused her fall but is adamant that she did not pass out or lose consciousness. She denies any dizziness. She does state that she feels like her blood pressure is low. She also feels like she h as been bumping into things. She states her PCPs been changing on her medications but she cannot exactly describe what and how much she is taking. She states she has never had anything like this before. She states nothing makes her falling episodes better or worse. She reports chronic low back pain that is unchanged. She denies fever, chills, chest pain, shortness of breath. She feels like her abdomen is more swollen and full of fluid but denies abdominal pain, nausea, vomiting, diarrhea. Discussed with patient wishes to be full code. """ (1) Cirrhosis of liver with ascites s/p paracentesis 11/15 with ?3L out (2) Hypotension, 60/40 at home, resolved with albumin - Cont diuretic regimen with Lasix 20 mg by mouth and spironolactone 12.5 mg by mouth. - On 11/16, she still has mild orthostatic dizziness with BP 115/72 --> 103/67 and HR 111--> 120 from lying to standing - will allow fluid equilibration and reassess tomorrow, avoid IV fluids (3) Hyponatremia Likely secondary to cirrhosis with volume overload. Mild at 129, asymptomatic. (4) Weakness (5) Mobility deficit Patient reports subjective improvement in her weakness after paracentesis - On 11/16, she walked int he hallway while holding banister throughout and was stumbling when tried to walk without support - PT/OTconsult as inpatient (5) History of systemic HTN (hypertension), currently low normal blood pressure (6) DVT prophylaxis Heparin 500 subcutaneous twice a day Lab draw holiday tomorrow - Time Spent with Patient Total time spent is greater than 50% in coordination of care (as documented) at patient's floor/unit and/or counseling patient: Internal Medicine: Result - Labs CBC & Chem 7: 11/16/18 01:14 11/16/18 01:14 Labs: Short CBC 11/16/18 Range/Units 01:14 WBC 4.1 L (4.3-11.1) K/mcL Hgb 10.8 L (11.5-15.4) g/dL Hct 31.8 L (35.3-44.9) % Plt Count 117 L (140-400) K/mcL Neutrophils # 2.6 (1.6-8.9) K/mcL BMP 11/16/18 01:14 Sodium 129 L Potassium 3.6 Chloride 91 L Carbon Dioxide 30 H BUN 16 Creatinine 0.74 Glucose 111 H Calcium 8.4 L Liver Function 11/16/18 Range/Units 01:14 Total Bilirubin 4.7 H (0.3-1.0) mg/dL Direct Bilirubin 3.1 H (0.0-0.2) mg/dL AST 176 H (13-39) Units/L ALT 59 H (7-52) Units/L Alkaline Phosphatase 197 H (34-104) Units/L Albumin 2.7 L (3.5-5.7) g/dL - ABG Interpretation ABG results: PT/INR, D-dimer PT 12.7 Seconds (9.4-12.1) H 11/15/18 08:14 - Impressions Impressions Paracentesis Ultrasound 11/15/18 09:45 IMPRESSION: Successful ultrasound guided paracentesis. D/ / Cecil Nolen MD / Cecil Nolen MD Interpreting Provider: Cecil Nolen MD Consult Discharge Plan - Plan Referrals: Althea Love DO [Resident] - (2) Cirrhosis Qualifiers: Hepatic cirrhosis type: alcoholic cirrhosis Ascites presence: with ascites Qualified Code(s): K70.31 - Alcoholic cirrhosis of liver with ascites (4) Hypotension Qualifiers: Hypotension type: unspecified hypotension type Qualified Code(s): I95.9 - Hypotension, unspecified
[2018-11-17] MEDS: *HR* Heparin 5,000 UNIT/ML VIAL SQ SCH ×2 (06:11→17:39)
[2018-11-17] MEDS: Spironolactone 25 MG TABLET PO SCH (08:33)
[2018-11-17] MEDS: Furosemide 20 MG TABLET PO SCH (08:34)
[2018-11-17] MEDS: Folic Acid 1 MG TABLET PO SCH (08:34)
--- NOTE | 2018-11-17 13:03 | Internal Med Progress Note ---
Hospitalist Progress Note - Encounter Date of Encounter: 11/17/18 Time of Encounter: 13:02 - Subjective Interval History: dizziness decreased till has some when walking occasional dyspnea no chest pain had some drainage from paracentesis site this morning wearing O2 at home for 2 months - Exam Vitals: Temp Pulse Resp BP Pulse Ox 98.4 F 91 15 103/70 96 11/17/18 06:55 11/17/18 06:55 11/17/18 06:55 11/17/18 06:55 11/17/18 06:55 Exam: Gen.: Oriented 3, no acute distress mild icterus Heart: Regular rate and rhythm, no murmurs, rubs, gallops Lungs: decreased breath sounds bilateral bases, no rales, rhonchi, wheezes Abdomen: Soft, nondistended, nontender. no guarding or rebound no ankle edema alert, oriented, no dysarthria or focal motor deficits - Assessment and Plan (1) DVT prophylaxis Current Visit: No Status: Acute (2) Cirrhosis Current Visit: Yes Status: Chronic (3) Hyponatremia Current Visit: Yes Status: Acute (4) Hypotension Current Visit: Yes Status: Resolved - Summary of Assessment and Plan Summary of Assessment and Plan: Per H&P: """Ms. Fatimah Baron is a 73 year old female with history of liver cirrhosis, hypertension presents with hypotension and frequent falls. Patient states that over the last several days she has had episodes where she has fallen. She cannot describe the events that caused her fall but is adamant that she did not pass out or lose consciousness. She denies any dizziness. She does state that she feels like her blood pressure is low. She also feels like she has been bumping into things. She states her PCPs been changing on her medications but she cannot exactly describe what and how much she is taking. She states she has never had anything like this before. She states nothing makes her falling episodes better or worse. She reports chronic low back pain that is unchanged. She denies fever, chills, chest pain, shortness of breath. She feels like her abdomen is more swollen and full of fluid but denies abdominal pain, nausea, vomiting, diarrhea. Discussed with patient wishes to be full code. """ (1) Cirrhosis of liver with ascites s/p paracentesis 11/15 with ?3L out (2) Hypotension, 60/40 at home, resolved with albumin - Cont diuretic regimen with Lasix 20 mg by mouth and spironolactone 12.5 mg by mouth. - she still has mild dizziness occasionally postural - will allow fluid equilibration, slowly improving (3) Hyponatremia Likely secondary to cirrhosis with volume overload. Mild at 129, asymptomatic. (4) Weakness (5) Mobility deficit Patient reports subjective improvement in her weakness after paracentesis - On 11/16, she walked in the hallway while holding banister throughout and was stumbling when tried to walk without support - PT/OT consult (6) History of systemic HTN (hypertension), currently low normal blood pressure (7) DVT prophylaxis Heparin 500 subcutaneous twice a day - Time Spent with Patient Total time spent is greater than 50% in coordination of care (as documented) at patient's floor/unit and/or counseling patient: Internal Medicine: Result - Labs CBC & Chem 7: 11/16/18 01:14 11/16/18 01:14 - ABG Interpretation ABG results: PT/INR, D-dimer PT 12.7 Seconds (9.4-12.1) H 11/15/18 08:14 Consult Discharge Plan - Plan Referrals: Althea Love DO [Resident] - (2) Cirrhosis Qualifiers: Hepatic cirrhosis type: alcoholic cirrhosis Ascites presence: with ascites Qualified Code(s): K70.31 - Alcoholic cirrhosis of liver with ascites (4) Hypotension Qualifiers: Hypotension type: unspecified hypotension type Qualified Code(s): I95.9 - Hypotension, unspecified
[2018-11-18 04:56] LABS: Hematocrit 34.4 % (35.3-44.9); Hemoglobin 11.5 g/dL (11.5-15.4); Mean Corpuscular HGB Conc 33.4 g/dL (31.6-35.5); Mean Corpuscular Hemoglobin 33.8 pg (28.0-33.3); Mean Corpuscular Volume 101.2 fL (83.0-100.0); Mean Platelet Volume 10.9 fL (9.4-12.4); Platelet Count 124 K/mcL (140-400); Red Cell Distribution Width 15.4 % (11.5-14.5)
[2018-11-18] MEDS: *HR* Heparin 5,000 UNIT/ML VIAL SQ SCH (05:04)
[2018-11-18 05:13] LABS: BUN/Creatinine Ratio 24 (6-26); Blood Urea Nitrogen 14 mg/dL (8-23); Calcium 8.4 mg/dL (8.6-10.3); Carbon Dioxide 31 mEq/L (23-29); Chloride 96 mEq/L (98-107); Glucose 97 mg/dL (70-105); Osmolality,Calculated 284 (280-300); Potassium 3.2 mEq/L (3.5-5.1); Sodium 137 mEq/L (136-145); eGFR For Non-African Americans > 60 (> 60)
[2018-11-18] MEDS: Folic Acid 1 MG TABLET PO SCH (08:23)
[2018-11-18] MEDS: Spironolactone 25 MG TABLET PO SCH (08:23)
[2018-11-18] MEDS: Furosemide 20 MG TABLET PO SCH (08:23)
--- NOTE | 2018-11-18 13:16 | Internal Med Progress Note ---
Hospitalist Progress Note - Encounter Date of Encounter: 11/18/18 Time of Encounter: 12:16 - Subjective Interval History: Patient complained of leaking fluid through pleurocentesis site. Review the lab in vitals Patient denies fever or chills nausea vomiting headache dizziness chest pain shortness of breath abdominal pain diarrhea - Exam Vitals: Temp Pulse Resp BP Pulse Ox 98.2 F 95 16 113/73 98 11/18/18 10:10 11/18/18 10:10 11/18/18 10:10 11/18/18 10:10 11/18/18 10:10 Exam: Gen.: Oriented 3, no acute distress PERRLA EOMI Heart: Regular rate and rhythm, no murmurs, rubs, gallops Lungs: decreased breath sounds bilateral bases, no rales, rhonchi, wheezes Abdomen: Soft, nondistended, nontender. no guarding or rebound. Ascites. Leaking fluid through the paracentesis site. 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 Paracentesis attempted but unsuccessful, please see procedure note for details. Patient is leaking fluid through paracentesis site therefore consulted interventional radiologist again we will reevaluate the patient for further plan Possible discharge tomorrow if cleared by IR (2) HTN (hypertension) Current Visit: No Status: Chronic Assessment and Plan: Blood pressure improved (3) Hyponatremia Current Visit: Yes Status: Acute Assessment and Plan: Improved (4) Weakness Current Visit: Yes Status: Acute Assessment and Plan: Patient reports subjective improvement in her weakness. PTOT on board (5) Hypotension Current Visit: Yes Status: Resolved Assessment and Plan: Resolved at this time after giving albumin. restarted her diuretic regimen with Lasix 20 mg by mouth and Aldactone 12.5 mg by mouth. (6) DVT prophylaxis Current Visit: No Status: Acute Assessment and Plan: Heparin 500 subcutaneous twice a day - Time Spent with Patient Total time spent is greater than 50% in coordination of care (as documented) at patient's floor/unit and/or counseling patient: Internal Medicine: Result - Labs CBC & Chem 7: 11/18/18 04:40 11/18/18 04:40 Labs: Short CBC 11/18/18 Range/Units 04:40 WBC 4.3 (4.3-11.1) K/mcL Hgb 11.5 (11.5-15.4) g/dL Hct 34.4 L (35.3-44.9) % Plt Count 124 L (140-400) K/mcL BMP 11/18/18 04:40 Sodium 137 Potassium 3.2 L Chloride 96 L Carbon Dioxide 31 H BUN 14 Creatinine 0.59 L Glucose 97 Calcium 8.4 L - ABG Interpretation ABG results: PT/INR, D-dimer PT 12.7 Seconds (9.4-12.1) H 11/15/18 08:14 Consult Discharge Plan - Plan Referrals: Althea Love DO [Resident] - (1) Cirrhosis of liver with ascites Qualifiers: Hepatic cirrhosis type: alcoholic cirrhosis Qualified Code(s): K70.31 - Alcoholic cirrhosis of liver with ascites (2) HTN (hypertension) Qualifiers: Hypertension type: essential hypertension Qualified Code(s): I10 - Essential (primary) hypertension (5) Hypotension Qualifiers: Hypotension type: unspecified hypotension type Qualified Code(s): I95.9 - Hypotension, unspecified
[2018-11-18 13:53] VITALS: BP 109/66
--- NOTE | 2018-11-18 17:03 | Discharge Summary ---
- NOTES TO OUTPATIENT PROVIDER Notes to Outpatient Provider: Follow-up with PCP-in 3-5 days. Get established with GI specialist with the help of PCP. Home health care for PT OT Orders not resulted at time of discharge: Pending orders 11/14/18 19:29 Culture,Blood [BC] Stat 11/19/18 04:00 BMP [Basic Metabolic Panel] AM 0400 Complete Blood Count [HEME] AM 0400 Date of Encounter: 11/18/18 Time of Encounter: 16:59 - Discharge Diagnosis (1) Cirrhosis of liver with ascites Priority: Primary Status: Acute Assessment and Plan: Status post paracentesis with failed attempt as per the operative note by IR. There was concern about leaking paracentesis site therefore reconsulted intervention radiologist and he evaluated the patient and did not find any concern and okay to discharge home. Chronic respiratory failure-due to unknown etiology. Home oxygen 2 L Qualifiers: Hepatic cirrhosis type: alcoholic cirrhosis Qualified Code(s): K70.31 - Alcoholic cirrhosis of liver with ascites (2) HTN (hypertension) Priority: Primary Status: Chronic Assessment and Plan: Blood pressure improved Qualifiers: Hypertension type: essential hypertension Qualified Code(s): I10 - Essential (primary) hypertension (3) Hyponatremia Priority: Primary Status: Acute Assessment and Plan: Improved (4) Weakness Priority: Primary Status: Acute Assessment and Plan: Patient reports subjective improvement in her weakness. PTOT on board in being discharged home health care with PTOT. Discuss with director of social media marketing (5) Hypotension Priority: Primary Status: Resolved Assessment and Plan: Resolved at this time after giving albumin. restarted her diuretic regimen with Lasix 20 mg by mouth and Aldactone 12.5 mg by mouth and so far tolerating well. Qualifiers: Hypotension type: unspecified hypotension type Qualified Code(s): I95.9 - Hypotension, unspecified Hospital course: Ms. Fatimah Baron is a 73 year old female got admitted for dizziness and found to be low blood pressure underlying etiology. Patient also had liver cirrhosis therefore paracentesis was attempted unsuccessfully. Blood pressure improve after albumin infuses in restarted her home diuretic medicine and tolerating well. Please see detail in diagnosis section of discharge summary. At the time of discharge patient is clinically hemodynamically stable, tolerating oral diet and ambulating. Patient thinks she is back to baseline without any further dizziness. As per patient supposed to see GI specialist but not able to recall the name. Discharge discussed with: patient, nurse, social work, case management - Time Spent with Patient Total time spent providing and/or coordinating discharge services: Time spent: Less than 30 minutes, Greater than 30 minutes - Discharge Medications Prescriptions: No Action Albuterol Neb [Proventil Neb] 2.5 mg IH QID PRN PRN Reason: Shortness Of Breath Naproxen Sodium [Aleve] 220 mg PO DAILY Aspirin [Adult Aspirin Regimen] 81 mg PO DAILY Cyclobenzaprine HCl 5 mg PO BID PRN PRN Reason: Muscle Spasm Folic Acid 1 mg PO DAILY Furosemide [Lasix] 20 mg PO DAILY Spironolactone 25 mg PO DAILY Albuterol Sulfate [Ventolin Hfa] 2 puff IH Q6H PRN PRN Reason: Shortness Of Breath Omeprazole [PriLOSEC] 40 mg PO DAILY Potassium Chloride [K-Tab ER] 20 meq PO DAILY Magnesium Oxide [Magnesium] 1,000 mg PO DAILY Home Medications: Albuterol Neb [Proventil Neb] 2.5 mg IH QID PRN 07/26/18 [History] Naproxen Sodium [Aleve] 220 mg PO DAILY 07/26/18 [History] Albuterol Sulfate [Ventolin Hfa] 2 puff IH Q6H PRN 11/14/18 [History] Aspirin [Adult Aspirin Regimen] 81 mg PO DAILY 11/14/18 [History] Cyclobenzaprine HCl 5 mg PO BID PRN 11/14/18 [History] Folic Acid 1 mg PO DAILY 11/14/18 [History] Furosemide [Lasix] 20 mg PO DAILY 11/14/18 [History] Magnesium Oxide [Magnesium] 1,000 mg PO DAILY 11/14/18 [History] Omeprazole [PriLOSEC] 40 mg PO DAILY 11/14/18 [History] Potassium Chloride [K-Tab ER] 20 meq PO DAILY 11/14/18 [History] Spironolactone 25 mg PO DAILY 11/14/18 [History] Allergies/Adverse Reactions: Allergy/AdvReac Type Severity Reaction Status Date / Time sulfamethoxazole AdvReac See Verified 11/14/18 18:45 [From Bactrim] Comments trimethoprim [From Bactrim] AdvReac See Verified 11/14/18 18:45 Comments Date of admission: 11/15/18 14:45 Primary care physician: PCP NONE Consults: 11/14/18 17:57 Consult to Supervisor Rod Placing [CONS] Routine Reason for SW Consult: Frequent falls, may need placement 11/15/18 09:44 Consult to Interventional Radiology [CONS] Routine Consulting Provider: Radiology Interventional Cols Reason for Consult: paracentesis Call Completed: No 11/16/18 16:54 Consult to Occupational Therapy [CONS] Routine Comment: Evaluate, develop and implement POC Reason for Consult: Frequent falls Does patient have active BEDREST order?: No Is patient medically & hemodynamically stable?: Yes Consult to Physical Therapy [CONS] Routine Comment: Evaluate, develop and implement POC Reason for Consult: Frequent falls Does patient have active BEDREST order?: No Is patient medically & hemodynamically stable?: Yes - Constitutional Vitals: Temp Pulse Resp BP Pulse Ox 98.0 F 88 17 109/66 99 11/18/18 13:52 11/18/18 13:52 11/18/18 13:52 11/18/18 13:52 11/18/18 13:52 General appearance: Present: A&O X 3, pleasant, no acute distress Exam: Gen.: Oriented 3, no acute distress PERRLA EOMI Heart: Regular rate and rhythm, no murmurs, rubs, gallops Lungs: decreased breath sounds bilateral bases, no rales, rhonchi, wheezes Abdomen: Soft, nondistended, nontender. no guarding or rebound. Ascites. 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
--- NOTE | 2018-11-18 17:13 | Physician Discharge Referral ---
Home Health/Hosp Referral Info Transfer to: Home Health - Diagnosis (1) Cirrhosis of liver with ascites Priority: Primary Status: Acute (2) HTN (hypertension) Priority: Secondary Status: Chronic (3) Hyponatremia Priority: Primary Status: Acute (4) Weakness Priority: Primary Status: Acute (5) Hypotension Priority: Primary Status: Resolved - Respiratory Orders Smoking Cessation: Smoking cessation has been advised. For more information, call the [place] Tobacco Quit Line at 9-726-IDOI-NOW. - Services Needed Following services are medically necessary services: Physical Therapy, Occupational Therapy - Transfer Medications Home Medications: Albuterol Neb [Proventil Neb] 2.5 mg IH QID PRN 07/26/18 [History] Naproxen Sodium [Aleve] 220 mg PO DAILY 07/26/18 [History] Albuterol Sulfate [Ventolin Hfa] 2 puff IH Q6H PRN 11/14/18 [History] Aspirin [Adult Aspirin Regimen] 81 mg PO DAILY 11/14/18 [History] Cyclobenzaprine HCl 5 mg PO BID PRN 11/14/18 [History] Folic Acid 1 mg PO DAILY 11/14/18 [History] Furosemide [Lasix] 20 mg PO DAILY 11/14/18 [History] Magnesium Oxide [Magnesium] 1,000 mg PO DAILY 11/14/18 [History] Omeprazole [PriLOSEC] 40 mg PO DAILY 11/14/18 [History] Potassium Chloride [K-Tab ER] 20 meq PO DAILY 11/14/18 [History] Spironolactone 25 mg PO DAILY 11/14/18 [History] Allergies/Adverse Reactions: Allergy/AdvReac Type Severity Reaction Status Date / Time sulfamethoxazole AdvReac See Verified 11/14/18 18:45 [From Bactrim] Comments trimethoprim [From Bactrim] AdvReac See Verified 11/14/18 18:45 Comments Certification: Further, I certify that my clinical findings support that this patient is homebound (i.e. absences from home require considerable and taxing effort and are for medical reasons or restoration services or infrequently or short duration when for other reasons) because: Homebound Reason: Patient requires assistance of a person or device to safely leave home Attestation: My signature below is to certify that this patient is under my care and that I, or nurse practitioner, or a physician's metal forger's assistant working with me, has a [id number] encounter with this patient.
== END 2018-11-18 17:56 | disposition home health service (06) | DRG 433 ==
LOC: SUATTDRO → 3ANU 14:34 → EMEROOARM 14:34 → 3ANU 19:59
PROVIDERS: ADMIT Internal Medicine Nephrology; ATTEND Internal Medicine Nephrology

== ENCOUNTER 2019-04-24 09:16 | Inpatient (IN) ==
[2019-04-24] MEDS ORDERED: CeFAZolin Syr 2,000MG/20 ML 2,000 MG/20 ML SYRINGE IVPB ONE (09:39)
[2019-04-24] MEDS ORDERED: Albuterol 2.5 MG/3 ML NEBULIZER IH ONE (09:44)
[2019-04-24] MEDS ORDERED: Ringers Solution, Lactated 1,000 ML IVC SCH (09:45)
[2019-04-24] MEDS ORDERED: Hydrocortisone Sodium Succ 100 MG/2 ML VIAL IVP ONE (10:05)
[2019-04-24] MEDS ORDERED: *HR* Promethazine 25 MG/ML VIAL IVP PRN (10:05)
[2019-04-24] MEDS ORDERED: *HR* HYDROmorphone (PF) 1 MG/ML SYRINGE IVP PRN (10:05)
[2019-04-24] MEDS ORDERED: Ondansetron ODT 4 MG TAB.RAPDIS SL ONE (10:05)
[2019-04-24] MEDS ORDERED: *HR* OxyCODONE Immed Rel 5 MG TABLET PO PRN (10:05)
[2019-04-24] MEDS ORDERED: Famotidine 20 MG/2 ML VIAL IVP ONE (10:05)
[2019-04-24] MEDS ORDERED: Lidocaine HCL 4 ML Topical Solution (Laryng-O-Jet Kit Sterile Pak) TP ONE (10:07)
[2019-04-24] MEDS ORDERED: *HR* Succinylcholine 200 MG/10 ML VIAL IVP ONE (10:08)
[2019-04-24] MEDS ORDERED: Dexamethasone 4 MG/ML VIAL ONE (10:08)
[2019-04-24] MEDS ORDERED: Lidocaine -MPF 2% 2 ML VIAL ONE (10:08)
[2019-04-24] MEDS ORDERED: *HR* Rocuronium Bromide 50 MG/5 ML VIAL ONE ×2 (10:08→12:44)
[2019-04-24] MEDS ORDERED: Ondansetron 4 MG/2 ML VIAL ONE (10:08)
[2019-04-24] MEDS ORDERED: *HR* Etomidate 40 MG/20 ML VIAL IVP ONE (10:09)
[2019-04-24] MEDS ORDERED: *HR* FentaNYL (PF) 100 MCG/2 ML VIAL ONE ×2 (10:11→11:47)
[2019-04-24] MEDS ORDERED: EPHEDrine 50 MG/ML VIAL ONE (10:32)
[2019-04-24] MEDS ORDERED: Ketorolac 30 MG/ML VIAL ONE (11:49)
[2019-04-24] MEDS ORDERED: *HR* HYDROMORPHONE 2 MG/ML VIAL ONE (12:36)
[2019-04-24] MEDS ORDERED: Naloxone 0.4 MG/ML INJ IVP PRN (14:34)
[2019-04-24] MEDS: 0.9 % Sodium Chloride 1,000 ML IVC SCH (15:22)
[2019-04-24] MEDS: *HR* Heparin 5,000 UNIT/ML VIAL SQ SCH ×2 (15:23→21:42)
[2019-04-24] MEDS: Gabapentin 300 MG CAPSULE PO SCH ×2 (15:24→21:41)
[2019-04-24] MEDS: Ipratropium/Albuterol Neb 3 ML IH SCH ×3 (16:29→23:46)
[2019-04-24] MEDS: Ketorolac 15 MG/ML VIAL IVP SCH (17:53)
[2019-04-24] MEDS: *HR* HYDROcodone/Acet 5/325 mg TABLET PO PRN (21:41)
[2019-04-24] MEDS: Sennosides/Docusate Sodium TABLET PO SCH (21:42)
[2019-04-24] MEDS: Famotidine 20 MG TABLET PO SCH (21:42)
[2019-04-25] MEDS: Ketorolac 15 MG/ML VIAL IVP SCH ×4 (00:32→16:38)
[2019-04-25 02:42] LABS: Hematocrit 40.6 % (35.3-44.9); Hemoglobin 13.6 g/dL (11.5-15.4); Mean Corpuscular HGB Conc 33.5 g/dL (31.6-35.5); Mean Corpuscular Hemoglobin 33.3 pg (28.0-33.3); Mean Corpuscular Volume 99.3 fL (83.0-100.0); Mean Platelet Volume 12.7 fL (9.4-12.4); Platelet Count 106 K/mcL (140-400); Red Blood Count 4.09 M/mcL (3.82-4.97); Red Cell Distribution Width 11.9 % (11.5-14.5); White Blood Count 7.5 K/mcL (4.3-11.1)
[2019-04-25 03:02] LABS: % Iron Saturation 10 % (15-50); BUN/Creatinine Ratio 30 (6-26); Blood Urea Nitrogen 21 mg/dL (8-23); Calcium 8.9 mg/dL (8.6-10.3); Carbon Dioxide 23 mEq/L (23-29); Chloride 107 mEq/L (98-107); Glucose 150 mg/dL (70-105); Iron 31 mcg/dL (50-170); Magnesium 1.8 mg/dL (1.6-2.6); Osmolality,Calculated 290 (280-300); Potassium 4.3 mEq/L (3.5-5.1); Sodium 137 mEq/L (136-145); Transferrin 233 mg/dL (203-362); eGFR For African Americans > 60 (> 60); eGFR For Non-African Americans > 60 (> 60)
[2019-04-25] MEDS: Ipratropium/Albuterol Neb 3 ML IH SCH ×6 (04:33→23:29)
[2019-04-25] MEDS: 0.9 % Sodium Chloride 1,000 ML IVC SCH (05:29)
[2019-04-25] MEDS: *HR* Heparin 5,000 UNIT/ML VIAL SQ SCH ×3 (05:30→21:07)
[2019-04-25] MEDS: Ondansetron 4 MG/2 ML VIAL IVP PRN ×2 (05:39→14:09)
[2019-04-25] MEDS: *HR* HYDROcodone/Acet 5/325 mg TABLET PO PRN ×3 (05:39→19:17)
[2019-04-25] MEDS: Gabapentin 300 MG CAPSULE PO SCH ×3 (08:08→21:07)
[2019-04-25] MEDS: Sennosides/Docusate Sodium TABLET PO SCH ×2 (08:09→21:07)
[2019-04-25] MEDS: Famotidine 20 MG TABLET PO SCH ×2 (08:09→21:07)
[2019-04-25] MEDS ORDERED: Spironolactone 25 MG TABLET PO SCH (09:00)
[2019-04-25] MEDS ORDERED: Furosemide 20 MG TABLET PO SCH (09:00)
[2019-04-25] MEDS ORDERED: NON-FORMULARY MEDICATION 1 EACH EACH (Tiotropium Br/Olodaterol Hcl [Stiolto Respimat Inhal IH SCH (09:00)
[2019-04-25] MEDS ORDERED: Aspirin Enteric Coated 81 MG Tablet PO SCH (09:00)
[2019-04-25] MEDS ORDERED: Folic Acid 1 MG TABLET PO SCH (09:00)
[2019-04-25] MEDS ORDERED: Iron Sucrose Complex 400 MG in 0.9 % Sodium Chloride 250 ML IVPB ONE (12:53)
[2019-04-26] MEDS: Ketorolac 15 MG/ML VIAL IVP SCH ×2 (00:03→05:07)
[2019-04-26] MEDS: Ipratropium/Albuterol Neb 3 ML IH SCH ×4 (04:15→19:35)
[2019-04-26] MEDS: *HR* Heparin 5,000 UNIT/ML VIAL SQ SCH (05:07)
[2019-04-26 07:20] VITALS: BP 131/68
[2019-04-26] MEDS ORDERED: Ipratropium/Albuterol Neb 3 ML ONE (07:29)
== END 2019-04-26 11:51 | disposition home or self-care (01) | DRG 165 ==
LOC: SAMDAY 09:16 → MERGE 12:35 → 2NNU 14:16
PROVIDERS: ADMIT Thoracic Surgery (Cardiothoracic Vascular Surgery); ATTEND Thoracic Surgery (Cardiothoracic Vascular Surgery)

== ENCOUNTER 2022-05-01 09:34 | Observation (INO) ==
[2022-05-01 10:21] LABS: Basophils % 0.7 %; Eosinophils # 0.2 K/mcL (0.0-0.6); Hematocrit 32.2 % (35.3-44.9); Hemoglobin 10.3 g/dL (11.5-15.4); Immature Granulocytes % 0.7 % (0-4); Lymphocytes # 0.9 K/mcL (0.6-4.6); Lymphocytes % 22.8 %; Mean Corpuscular Hemoglobin 31.5 pg (28.0-33.3); Mean Corpuscular Volume 98.5 fL (83.0-100.0); Mean Platelet Volume 11.7 fL (9.4-12.4); Monocytes # 0.3 K/mcL (0.0-1.3); Monocytes % 8.2 %; Neutrophils # 2.5 K/mcL (1.6-8.9); Platelet Count 149 K/mcL (140-400); Red Blood Count 3.27 M/mcL (3.82-4.97); Red Cell Distribution Width 18.6 % (11.5-14.5); Segmented Neutrophils % 62.6 %
[2022-05-01 10:48] LABS: Alanine Aminotransferase 9 Units/L (7-52); Albumin 2.5 g/dL (3.5-5.7); Albumin/Globulin Ratio 0.6 (1.1-2.2); Alkaline Phosphatase 110 Units/L (34-104); Aspartate Amino Transferase 30 Units/L (13-39); BUN/Creatinine Ratio 18 (6-26); Bilirubin,Direct 0.3 mg/dL (0.0-0.2); Bilirubin,Indirect 0.5 mg/dL (0.0-1.0); Bilirubin,Total 0.8 mg/dL (0.3-1.0); Blood Urea Nitrogen 20 mg/dL (8-23); Calcium 7.7 mg/dL (8.6-10.3); Carbon Dioxide 27 mEq/L (23-29); Chloride 97 mEq/L (98-107); Globulin 3.9 g/dL (2.4-3.5); Glucose 115 mg/dL (70-105); Lipase 59 Units/L (11-82); Magnesium 1.6 mg/dL (1.6-2.6); Osmolality,Calculated 274 (280-300); Phosphorous 3.2 mg/dL (2.7-4.5); Potassium 2.9 mEq/L (3.5-5.1); Sodium 130 mEq/L (136-145); Total Protein 6.4 g/dL (6.4-8.9); Troponin I < 0.03 ng/mL (< 0.04)
[2022-05-01 11:01] LABS: Thyroid Stimulating Hormone 10.922 mcIU/mL (0.340-5.600)
[2022-05-01 11:11] LABS: Bacteria,Urine Few per hpf (None-Few); Bilirubin,Urine Negative (Negative); Blood,Urine Large (Negative); Budding Yeast,Urine Few per hpf (None Seen); Clarity,Urine Turbid (Clear); Color,Urine Yellow (Yellow); Glucose,Urine (UA) Normal (Normal); Hyaline Casts,Urine Many per lpf (None Seen); Ketones,Urine Negative (Negative); Leukocyte Esterase,Urine Large (Negative); Mucus,Urine Few per lpf (None-Few); Nitrite,Urine Negative (Negative); Protein,Urine Trace mg/dL (Neg-Trace); RBC,Urine 50-100 per hpf (0-3); Specific Gravity,Urine 1.014 (1.010-1.025); Squamous Epithelial Cell,Urine Few per hpf (None-Few); Urobilinogen,Urine Normal (Normal); WBC,Urine TNTC per hpf (0-3)
[2022-05-01] MEDS ORDERED: cefTRIAXone 2,000 MG in 0.9 % Sodium Chloride Mini Bag 100 ML IVPB ONE (11:17)
[2022-05-01] MEDS ORDERED: 0.9 % Sodium Chloride 250 ML ONE ×2 (11:50→13:53)
[2022-05-01 12:11] LABS: Triiodothyronine (T3) Total 75 ng/dL (87-178)
[2022-05-01] MEDS ORDERED: *HR* HYDROcodone/Acet 5/325 mg TABLET PO PRN (12:47)
[2022-05-01] MEDS ORDERED: Acetaminophen 325 MG TABLET PO PRN (12:47)
[2022-05-01] MEDS ORDERED: *HR* OxyCODONE Immed Rel 5 MG TABLET PO PRN (12:47)
[2022-05-01] MEDS ORDERED: Naloxone 0.4 MG/ML INJ IVP PRN (12:47)
[2022-05-01] MEDS ORDERED: Ondansetron 4 MG/2 ML VIAL IVP PRN (12:47)
[2022-05-01 12:57] LABS: RBC,Peritoneal Fluid < 2000 RBC/mcL
[2022-05-01 13:30] LABS: Appearance of Peritoneal Fl CLOUDY (Clear); Basophils,Peritoneal Fluid 0 %; Eosinophils,Peritoneal Fluid 0 %
[2022-05-01] MEDS ORDERED: *HR* Dextrose 50 % in Water (Syg) 50 ML SYRINGE IVP PRN (13:38)
[2022-05-01] MEDS ORDERED: Dextrose Gel 15 GM/37.5 ML TUBE PO PRN ×2 (13:38)
[2022-05-01] MEDS ORDERED: D5% in Water 1,000 ML IVC PRN (13:38)
[2022-05-01] MEDS ORDERED: 0.9 % Sodium Chloride 500 ML ONE (15:37)
[2022-05-01] MEDS ORDERED: Albumin 25% 12.5gm/50mL 12.5 GM/50 ML IV.SOLN IVPB ONE (18:38)
[2022-05-01 19:51] VITALS: BP 96/61; PULSE 90; TEMP 97.8; O2SAT 95
[2022-05-01] MEDS ORDERED: *HR* Heparin 5,000 UNIT/ML VIAL SQ SCH (22:00)
[2022-05-01] MEDS ORDERED: *HR* Heparin 5,000 UNIT/ML VIAL IVP ONE (23:58)
[2022-05-02] MEDS ORDERED: Folic Acid 1 MG TABLET PO SCH (09:00)
[2022-05-02] MEDS ORDERED: cefTRIAXone 2,000 MG in 0.9 % Sodium Chloride 20 ML IVP SCH (09:00)
[2022-05-02] MEDS ORDERED: Thiamine (B-1) 100 MG TABLET PO SCH (09:00)
[2022-05-02] MEDS ORDERED: Furosemide 20 MG TABLET PO SCH (09:00)
[2022-05-02] MEDS ORDERED: Gabapentin 300 MG CAPSULE PO SCH (09:00)
[2022-05-02] MEDS ORDERED: Spironolactone 25 MG TABLET PO SCH (09:00)
[2022-05-03 02:43] LABS: Enterococcus faecalis by PCR Not Detected (Not Detect); Enterococcus faecium by PCR Not Detected (Not Detect); Staph epidermidis by PCR DETECTED (Not Detect); Staphylococcus aureus by PCR Not Detected (Not Detect); Staphylococcus by PCR Not Detected (Not Detect); mecA/C Methicillin-Resist Gene DETECTED (Not Detect)
[2022-05-03 02:44] LABS: A.calcoaceticus-baumannii cplx Not Detected (Not Detect); Bacteroides fragilis by PCR Not Detected (Not Detect); Candida albicans by PCR Not Detected (Not Detect); Candida auris by PCR Not Detected (Not Detect); Candida glabrata by PCR Not Detected (Not Detect); Candida krusei by PCR Not Detected (Not Detect); Candida parapsilosis by PCR Not Detected (Not Detect); Candida tropicalis by PCR Not Detected (Not Detect); Crypto. neoformans/gattii PCR Not Detected (Not Detect); Enterobacter cloacae Cmplx PCR Not Detected (Not Detect); Enterobacterales by PCR Not Detected (Not Detect); Escherichia coli by PCR Not Detected (Not Detect); Klebs. pneumoniae group by PCR Not Detected (Not Detect); Klebsiella aerogenes by PCR Not Detected (Not Detect); Klebsiella oxytoca by PCR Not Detected (Not Detect); Proteus by PCR Not Detected (Not Detect); Pseudomonas aeruginosa by PCR Not Detected (Not Detect); Salmonella species by PCR Not Detected (Not Detect); Serratia marcescens by PCR Not Detected (Not Detect); Staph lugdunensis by PCR Not Detected (Not Detect); Stenotrophomonas maltophilia Not Detected (Not Detect); Streptococcus agalactiae(B)PCR Not Detected (Not Detect); Streptococcus by PCR Not Detected (Not Detect); Streptococcus pneumoniae PCR Not Detected (Not Detect); Streptococcus pyogenes (A) PCR Not Detected (Not Detect)
== END 2022-05-01 23:59 | disposition other institution (70) ==
LOC: 2ANU 09:34 → EMEROOARM 09:34 → 2ANU 16:30
PROVIDERS: ADMIT Internal Medicine; ATTEND Internal Medicine